=== PATIENT | male | born 1970 | race Two or more races ===

== ENCOUNTER 2019-07-17 12:43 | Outpatient (CLI) | payer OTHER ==
[~2019-07-17] VITALS: Ht 172.7 cm; Wt 82.6 kg
[2019-07-17] MEDS ORDERED: ZYRTEC10 MG ORAL (15:36)
[2019-07-17] MEDS ORDERED: WELLBUTRIN XL150 MG ORAL (15:36)
[2019-07-17] MEDS ORDERED: PRILOSEC OTC20 MG ORAL (15:36)
[2019-07-17] MEDS ORDERED: BIKTARVY 50-201 EACH PO (15:36)
[2019-07-17] MEDS ORDERED: CYMBALTA30 MG ORAL (15:36)
--- NOTE | 2019-07-21 23:00 | Consultation ---
DATE OF CONSULTATION: 07/17/2019 CONSULTING PHYSICIAN: Cody Cruz M.D. CHIEF COMPLAINT: Referral for screening colonoscopy. PAST MEDICAL HISTORY: 1. HIV. 2. GERD. 3. Depression. PAST SURGICAL HISTORY: Hernia repair. MEDICATIONS: HIV medications, Wellbutrin, Cymbalta, omeprazole. FAMILY HISTORY: Mother had breast cancer. SOCIAL HISTORY: The patient denies any alcohol, but smokes about 5 cigarettes per day. Denies any IV drug abuse. ALLERGIES: No known allergies. REVIEW OF SYSTEMS: A 10-point review of systems performed and pertinent positives in HPI. PHYSICAL EXAMINATION: VITAL SIGNS: Height is 5 feet 8 inches, weight is 182. HEENT: Normocephalic and atraumatic. Sclerae anicteric. NECK: Supple. No evidence of obvious lymphadenopathy. CARDIOVASCULAR: Regular rate and rhythm. Plus S1 and S2. No obvious murmur. LUNGS: Clear to auscultation bilaterally. ABDOMEN: Positive bowel sounds. Soft and nontender. No rebound. No guarding. No peritoneal signs. EXTREMITIES: No cyanosis, no clubbing, no edema. ASSESSMENT AND PLAN: This is a 48-year-old male in need for screening colonoscopy. The procedure was explained to the patient. Risks and benefits were explained to him. The patient agreed and we plan to schedule him when the authorization is obtained. Cody Cruz M.D. DR: Woody JOB#: [id number] CC:
== END 2019-07-17 14:43 | disposition home or self-care (01) ==
LOC: PAN 12:43
DX: K21.9 Gastro-esophageal reflux disease without esophagitis (principal); F32.9 Major depressive disorder, single episode, unspecified; B20 Human immunodeficiency virus [HIV] disease; Z79.899 Other long term (current) drug therapy
CPT/HCPCS: G0463